=== PATIENT | male | born 1955 | race Caucasian/White ===

== ENCOUNTER 2021-10-30 10:54 | Day surgery (SDC) | payer OTHER ==
[2021-10-30 11:31] VITALS: BMI 21.5
[2021-10-30 13:15] VITALS: TEMP 98.2
[2021-10-30 14:40] VITALS: BP 125/71; PULSE 63; RESP 19
== END 2021-10-30 13:51 | disposition home or self-care (01) ==
LOC: JASU-ENDO 10:54
PROVIDERS: ATTEND Internal Medicine Gastroenterology
PROC: 0DJ08ZZ Inspection of Upper Intestinal Tract, Via Natural or Artificial Opening Endoscopic (ICD-10-PCS; principal; 2021-10-30 12:00)
DX: K92.1 Melena (principal); D64.9 Anemia, unspecified